=== PATIENT | male | born 1970 ===

== ENCOUNTER 2020-03-11 14:21 | Emergency (ER) | payer BC ==
[2020-03-11] MEDS ORDERED: Sodium Chloride 0.9% 10 ML Syringe FLUSH PRN (14:50)
[2020-03-11] MEDS ORDERED: Labetalol 100 MG/20 ML MDV IVPUSH ONE ×2 (14:51→15:37)
--- NOTE | 2020-03-11 15:45 | EDM.PDOC ---
ED HPI GENERAL MEDICAL PROBLEM - General Chief Complaint: Cardiovascular Problem Stated Complaint: HIGH BLOOD PRESSURE, SENT BY [facility] Time Seen by Provider: 03/11/20 14:37 Source of Information: Reports: Patient, Provider History Limitations: Reports: No Limitations - History of Present Illness INITIAL COMMENTS - FREE TEXT/NARRATIVE: The patient presents with hypertension. He was at the eye doctor to get new glasses. They did a screening blood pressure and they could not get one. The eye doctor could not do a complete exam but she did notice that he has some hypertensive retinal changes. We could not get a BP on our machine. A manual BP was 230/160. He has no signs or symptoms. He has no fever, chills, cough, congestion, runny nose, headache, chest pain, shortness of breath, abdominal pain, nausea, vomiting numbness or weakness. He has no medical problems. He does not smoke. Onset: Gradual Duration: Hour(s): Improves with: Reports: None Worsens with: Reports: None Associated Symptoms: Reports: No Other Symptoms - Related Data Allergies Allergy/AdvReac Type Severity Reaction Status Date / Time No Known Allergies Allergy Verified 03/11/20 14:46 Home Meds: Home Meds hydroCHLOROthiazide [Hydrochlorothiazide] 25 mg PO DAILY #30 tab 03/11/20 [Rx] Past Medical History - Past Health History Medical/Surgical History: Denies Medical/Surgical History Social & Family History - Tobacco Use Tobacco Use Status *Q: Current Every Day Tobacco User Years of Tobacco use: 30 Packs/Tins Daily: 1 - Caffeine Use Caffeine Use: Reports: Coffee, Tea - Recreational Drug Use Recreational Drug Use: No ED ROS GENERAL - Review of Systems Review Of Systems: See Below Constitutional: Reports: No Symptoms HEENT: Reports: No Symptoms Respiratory: Reports: No Symptoms Cardiovascular: Reports: No Symptoms Endocrine: Reports: No Symptoms GI/Abdominal: Reports: No Symptoms : Reports: No Symptoms Musculoskeletal: Reports: No Symptoms ED EXAM, GENERAL - Physical Exam Exam: See Below Exam Limited By: No Limitations General Appearance: Alert, No Apparent Distress Ears: Normal External Exam Nose: Normal Inspection Head: Atraumatic, Normocephalic Neck: Normal Inspection Respiratory/Chest: No Respiratory Distress, Lungs Clear, Normal Breath Sounds Cardiovascular: Regular Rate, Rhythm, No Edema, No Murmur GI/Abdominal: Soft, Non-Tender, No Organomegaly, No Mass Extremities: Normal Inspection Neurological: Alert, Oriented, No Motor/Sensory Deficits #1 Interpretation EKG Date: 03/11/20 Time: 15:10 Rhythm: NSR Rate (Beats/Min): 82 [place]: LAD-Left [place] Deviation P-Wave: Present QRS: Normal ST-T: Normal QT: Normal EKG Interpretation Comments: Left atrial enlargement, LVH, Q waves in inferior leads. Slight ST elevation in anterior leads due to LVH. Course - Vital Signs Last Recorded V/S: Last Vital Signs Temp 96.4 F L 03/11/20 14:45 Pulse 85 03/11/20 15:34 Resp 18 03/11/20 15:34 BP 219/152 H 03/11/20 15:34 Pulse Ox 96 03/11/20 15:34 - Orders/Labs/Meds Orders: Active Orders 24 hr Category Date Time Status Cardiac Monitoring [RC] . DIRECTED Care 03/11/20 14:50 Active EKG Documentation Completion [RC] STAT Care 03/11/20 14:51 Active Peripheral IV Care [RC] . DIRECTED Care 03/11/20 14:51 Active Sodium Chloride 0.9% [Saline Flush] Med 03/11/20 14:50 Active 10 ml FLUSH ASDIRECTED PRN Peripheral IV Insertion Adult [OM.PC] Stat Oth 03/11/20 14:50 Ordered Medication Orders Sodium Chloride (Saline Flush) 10 ml FLUSH ASDIRECTED PRN PRN Reason: Keep Vein Open Last Admin: 03/11/20 15:05 Dose: 10 ml Documented by: SARAH Labs: Laboratory Tests 03/11/20 03/11/20 Range/Units 14:45 14:45 WBC 10.25 H (4.23-9.07) K/mm3 RBC 5.60 (4.63-6.08) M/mm3 Hgb 15.2 (13.7-17.5) gm/dl Hct 47.7 (40.1-51.0) % MCV 85.2 (79.0-92.2) fl MCH 27.1 (25.7-32.2) pg MCHC 31.9 L (32.2-35.5) g/dl RDW Std Deviation 42.6 (35.1-43.9) fL Plt Count 311 (163-337) K/mm3 MPV 10.8 (9.4-12.3) fl Neut % (Auto) 64.7 (34.0-67.9) % Lymph % (Auto) 24.2 (21.8-53.1) % [place] % (Auto) 7.1 (5.3-12.2) % Eos % (Auto) 3.0 (0.8-7.0) Baso % (Auto) 0.8 (0.1-1.2) % Neut # (Auto) 6.63 H (1.78-5.38) K/mm3 Lymph # (Auto) 2.48 (1.32-3.57) K/mm3 [place] # (Auto) 0.73 (0.30-0.82) K/mm3 Eos # (Auto) 0.31 (0.04-0.54) K/mm3 Baso # (Auto) 0.08 (0.01-0.08) K/mm3 Manual Slide Review Normal smear Sodium 139 (136-145) mEq/L Potassium 3.8 (3.5-5.1) mEq/L Chloride 104 (98-107) mEq/L Carbon Dioxide 24 (21-32) mEq/L Anion Gap 14.8 (5-15) BUN 20 H (7-18) mg/dL Creatinine 1.2 (0.7-1.3) mg/dL Est Cr Clr Drug Dosing 73.65 mL/min Estimated GFR (MDRD) > 60 (>60) mL/min BUN/Creatinine Ratio 16.7 (14-18) Glucose 98 (74-106) mg/dL Calcium 9.6 (8.5-10.1) mg/dL Total Bilirubin 0.3 (0.2-1.0) mg/dL AST 22 (15-37) U/L ALT 47 (16-63) U/L Alkaline Phosphatase 109 (46-116) U/L Troponin I 0.055 (0.00-0.056) ng/mL Total Protein 8.0 (6.4-8.2) g/dl Albumin 3.8 (3.4-5.0) g/dl Globulin 4.2 gm/dL Albumin/Globulin Ratio 0.9 L (1-2) Meds: Medications Generic Name Dose Route Start Last Admin Trade Name Freq PRN Reason Stop Dose Admin Sodium Chloride 10 ml 03/11/20 14:50 03/11/20 15:05 Saline Flush FLUSH 10 ml ASDIRECTED PRN Administration Keep Vein Open Discontinued Medications Generic Name Dose Route Start Last Admin Trade Name Matt PRN Reason Stop Dose Admin Labetalol HCl 20 mg 03/11/20 14:51 03/11/20 15:04 Normodyne IVPUSH 03/11/20 14:52 20 mg ONETIME ONE Administration Protocol Labetalol HCl 40 mg 03/11/20 15:37 03/11/20 15:48 Normodyne IVPUSH 03/11/20 15:38 40 mg ONETIME ONE Administration Protocol - Re-Assessments/Exams Free Text/Narrative Re-Assessment/Exam: 03/11/20 15:47 I ordered an IV saline lock, labetalol 20mg IV, EKG, and labs. His EKG shows LVH. 03/11/20 16:14 His WBC was slightly elevated at 10.25. His CMP is negative. His troponin is negative. His BP is better it is 188/113. This is acceptable. I don not want to drop him to normal because he is at higher risk of stroke or heart attack. 03/11/20 16:15 I will get him on HCTZ and have him follow up with one of our providers in the clinic. Departure - Departure Time of Disposition: 16:20 Disposition: Home, Self-Care 01 Condition: Good Clinical Impression: Hypertension Qualifiers: Hypertension type: essential hypertension Qualified Code(s): I10 - Essential (primary) hypertension Prescriptions: hydroCHLOROthiazide [Hydrochlorothiazide] 25 mg PO DAILY #30 tab Referrals: PCP,None [Primary Care Provider] - Aravind Tijerina NP [Nurse Practitioner] - 1 Week Forms: ED Department Discharge Additional Instructions: Take the hydrochlorothiazide daily. Try to loose some weight. Watch your sodi um intake. Please return if you are worse. Sepsis Event Note (ED) - Evaluation Sepsis Screening Result: No Definite Risk - Focused Exam Vital Signs: Vital Signs Temp Pulse Resp BP Pulse Ox 03/11/20 15:34 85 18 219/152 H 96 03/11/20 15:25 80 213/148 H 96 03/11/20 15:15 81 224/150 H 100 03/11/20 14:54 93 13 260/160 H 100 03/11/20 14:45 96.4 F L 103 H 23 H 230/160 H 96 - My Orders Last 24 Hours: My Active Orders 03/11/20 14:50 Cardiac Monitoring [RC] . DIRECTED Sodium Chloride 0.9% [Saline Flush] 10 ml FLUSH ASDIRECTED PRN Peripheral IV Insertion Adult [OM.PC] Stat 03/11/20 14:51 EKG Documentation Completion [RC] STAT Peripheral IV Care [RC] . DIRECTED - Assessment/Plan Last 24 Hours: My Active Orders 03/11/20 14:50 Cardiac Monitoring [RC] . DIRECTED Sodium Chloride 0.9% [Saline Flush] 10 ml FLUSH ASDIRECTED PRN Peripheral IV Insertion Adult [OM.PC] Stat 03/11/20 14:51 EKG Documentation Completion [RC] STAT Peripheral IV Care [RC] . DIRECTED
== END 2020-03-11 16:40 | disposition home or self-care (01) ==
LOC: JD.ED 14:21
DX: I10 Essential (primary) hypertension (principal); D72.829 Elevated white blood cell count, unspecified; F17.210 Nicotine dependence, cigarettes, uncomplicated; Z79.899 Other long term (current) drug therapy
CPT/HCPCS: 36415; 80053; 84484; 85025; 93005; 96374; 96376; 99283; J3490; 93010; 99284

== ENCOUNTER 2020-07-31 13:24 | Emergency (ER) | payer BC ==
--- NOTE | 2020-07-31 13:29 | EDM.PDOC ---
ED HPI GENERAL MEDICAL PROBLEM - General Chief Complaint: General Stated Complaint: [facility] Time Seen by Provider: 07/31/20 13:29 - History of Present Illness INITIAL COMMENTS - FREE TEXT/NARRATIVE: 50-year-old male brought in by EMS with severe dizziness. This started about an hour and a half ago the patient drove to the [facility] in to hike around but after a couple hundred yards he was too dizzy. The patient decided to drive back to [place]. In route the dizziness got worse and the patient stopped at the EMS station in [place]. They transferred him from here the patient does not have any breathing difficulties no shortness of breath no chest pain and no palpitations. The patient was recently diagnosed with hypertension back in February and now is on 4 medications to control this. Taking losartan 50 mg a day amlodipine 10 mg a day hydrochlorothiazide 25 mg a day and prazosin 1 mg daily. The patient does not have a cough congestion. - Related Data Allergies Allergy/AdvReac Type Severity Reaction Status Date / Time No Known Allergies Allergy Verified 07/31/20 13:38 Home Meds: Home Meds Chlorthalidone 50 mg PO DAILY 07/31/20 [History] Losartan [Cozaar] 50 mg PO DAILY 07/31/20 [History] Meclizine [Antivert] 25 mg PO ASDIRECTED PRN #20 tab.chew 07/31/20 [Rx] Potassium Chloride [Klor-Con M20] 20 meq PO BID #6 tab.er 07/31/20 [Rx] Prazosin [Minpress] 1 mg PO DAILY 07/31/20 [History] amLODIPine Besylate [Amlodipine Besylate] 10 mg PO DAILY 07/31/20 [History] Past Medical History - Past Health History Medical/Surgical History: Denies Medical/Surgical History Social & Family History - Caffeine Use Caffeine Use: Reports: Coffee, Tea ED ROS GENERAL - Review of Systems Review Of Systems: See Below Constitutional: Reports: No Symptoms HEENT: Reports: Vertigo Respiratory: Reports: No Symptoms Cardiovascular: Denies: Chest Pain Endocrine: Reports: No Symptoms GI/Abdominal: Reports: No Symptoms : Reports: No Symptoms Musculoskeletal: Reports: No Symptoms Skin: Reports: No Symptoms Neurological: Reports: Dizziness. Denies: No Symptoms, Syncope Psychiatric: Reports: No Symptoms Hematologic/Lymphatic: Reports: No Symptoms Immunologic: Reports: No Symptoms ED EXAM, GENERAL - Physical Exam Exam: See Below Exam Limited By: No Limitations General Appearance: Alert, No Apparent Distress Eye Exam: Bilateral Eye: Foreign Body, Normal Inspection, PERRL Ears: Normal External Exam, Normal [place], Hearing Grossly Normal, Normal TMs, Other (It was noted that when the patient looks to the right this triggers the dizziness this is not noted when the patient looks to the left) Nose: Normal Inspection, Normal Mucosa, No Blood Throat/Mouth: Normal Inspection, Normal Lips, Normal Teeth, Normal Gums, Normal Oropharynx, Normal Voice, No Airway Compromise Head: Atraumatic, Normocephalic Neck: Normal Inspection, Supple, Non-Tender, Full Range of Motion. No: Lymphadenopathy (L), Lymphadenopathy (R) Respiratory/Chest: No Respiratory Distress, Lungs Clear, Normal Breath Sounds Cardiovascular: Regular Rate, Rhythm, No Edema, No Murmur GI/Abdominal: Normal Bowel Sounds, Soft, Non-Tender Back Exam: Normal Inspection. No: CVA Tenderness (L), CVA Tenderness (R), Vertebral Tenderness Extremities: Normal Inspection, No Pedal Edema Neurological: Alert, Oriented, CN II-XII Intact, Normal Cognition, No Motor/Sensory Deficits Psychiatric: Normal Affect, Normal Mood Skin Exam: Warm, Dry, Intact, Normal Color #1 Interpretation EKG Date: 07/31/20 Rhythm: NSR Rate (Beats/Min): 65 [place]: Normal P-Wave: Present QRS: Other (LVH) ST-T: Other (Borderline anterior ST elevation most likely due to LVH) QT: Normal Comparison: No Change (No significant change from prior EKG done 03/11 of last year) EKG Interpretation Comments: Abnormal nondiagnostic EKG Course - Vital Signs Last Recorded V/S: Last Vital Signs Temp 36.6 C 07/31/20 13:30 Pulse 78 07/31/20 13:30 Resp 18 07/31/20 13:30 BP 121/81 07/31/20 13:30 Pulse Ox 94 L 07/31/20 13:30 - Orders/Labs/Meds Orders: Active Orders 24 hr Category Date Time Status Ang Chest [CT] Stat Exams 07/31/20 14:41 Taken Chest 1V Frontal [CR] Stat Exams 07/31/20 13:45 Taken Magnesium Sulfate/Water [Magnesium Sulfate in Water 2 Med 07/31/20 14:45 Active GM/50 ML] 2 gm in 50 ml IV Q1H Sodium Chloride 0.9% [Normal Saline] 100 ml Med 07/31/20 15:00 Active IV ASDIRECTED Sodium Chloride 0.9% [Saline Flush] Med 07/31/20 15:00 Active 10 ml FLUSH ASDIRECTED Medication Orders Magnesium Sulfate (Magnesium Sulfate In Water 2 Gm/50 Ml) 2 gm in 50 mls @ 25 mls/hr IV Q1H AIMEE Last Admin: 07/31/20 15:35 Dose: 25 mls/hr Documented by: JOSE Sodium Chloride (Normal Saline) 100 mls @ 60 mls/hr IV ASDIRECTED AIMEE Last Admin: 07/31/20 15:17 Dose: 60 mls/hr Documented by: NOHEMI Sodium Chloride (Sodium Chloride 0.9% 10 Ml Syringe) 10 ml FLUSH ASDIRECTED AIMEE Last Admin: 07/31/20 15:17 Dose: 10 ml Documented by: [email or web address] Labs: Laboratory Tests 07/31/20 07/31/20 07/31/20 Range/Units 13:30 13:30 13:30 WBC 16.63 H (4.23-9.07) K/mm3 RBC 4.90 (4.63-6.08) M/mm3 Hgb 13.2 L D (13.7-17.5) gm/dl Hct 41.6 (40.1-51.0) % MCV 84.9 (79.0-92.2) fl MCH 26.9 (25.7-32.2) pg MCHC 31.7 L (32.2-35.5) g/dl RDW Std Deviation 42.6 (35.1-43.9) fL Plt Count 405 H D (163-337) K/mm3 MPV 10.1 (9.4-12.3) fl Neut % (Auto) 82.1 H (34.0-67.9) % Lymph % (Auto) 10.6 L (21.8-53.1) % [place] % (Auto) 5.0 L (5.3-12.2) % Eos % (Auto) 1.8 (0.8-7.0) Baso % (Auto) 0.2 (0.1-1.2) % Neut # (Auto) 13.65 H (1.78-5.38) K/mm3 Lymph # (Auto) 1.76 (1.32-3.57) K/mm3 [place] # (Auto) 0.83 H (0.30-0.82) K/mm3 Eos # (Auto) 0.30 (0.04-0.54) K/mm3 Baso # (Auto) 0.04 (0.01-0.08) K/mm3 Manual Slide Review Normal smear PT 11.0 (9.7-12.0) SECONDS INR 1.03 APTT 23.6 (21.7-31.4) SECONDS D-Dimer, Quantitative 1.10 H (0.19-0.50) mg/L Sodium 140 (136-145) mEq/L Potassium 3.3 L (3.5-5.1) mEq/L Chloride 102 (98-107) mEq/L Carbon Dioxide 24 (21-32) mEq/L Anion Gap 17.3 H (5-15) BUN 23 H (7-18) mg/dL Creatinine 1.4 H (0.7-1.3) mg/dL Est Cr Clr Drug Dosing TNP Estimated GFR (MDRD) 54 (>60) mL/min BUN/Creatinine Ratio 16.4 (14-18) Glucose 132 H (74-106) mg/dL Calcium 9.5 (8.5-10.1) mg/dL Magnesium 1.6 L (1.8-2.4) mg/dl Total Bilirubin 0.3 (0.2-1.0) mg/dL AST 19 (15-37) U/L ALT 49 (16-63) U/L Alkaline Phosphatase 112 (46-116) U/L Troponin I < 0.017 (0.00-0.056) ng/mL Total Protein 7.9 (6.4-8.2) g/dl Albumin 3.4 (3.4-5.0) g/dl Globulin 4.5 gm/dL Albumin/Globulin Ratio 0.8 L (1-2) SARS-CoV-2 RNA (LILI) (NEGATIVE) 07/31/20 Range/Units 15:45 WBC (4.23-9.07) K/mm3 RBC (4.63-6.08) M/mm3 Hgb (13.7-17.5) gm/dl Hct (40.1-51.0) % MCV (79.0-92.2) fl MCH (25.7-32.2) pg MCHC (32.2-35.5) g/dl RDW Std Deviation (35.1-43.9) fL Plt Count (163-337) K/mm3 MPV (9.4-12.3) fl Neut % (Auto) (34.0-67.9) % Lymph % (Auto) (21.8-53.1) % [place] % (Auto) (5.3-12.2) % Eos % (Auto) (0.8-7.0) Baso % (Auto) (0.1-1.2) % Neut # (Auto) (1.78-5.38) K/mm3 Lymph # (Auto) (1.32-3.57) K/mm3 [place] # (Auto) (0.30-0.82) K/mm3 Eos # (Auto) (0.04-0.54) K/mm3 Baso # (Auto) (0.01-0.08) K/mm3 Manual Slide Review PT (9.7-12.0) SECONDS INR APTT (21.7-31.4) SECONDS D-Dimer, Quantitative (0.19-0.50) mg/L Sodium (136-145) mEq/L Potassium (3.5-5.1) mEq/L Chloride (98-107) mEq/L Carbon Dioxide (21-32) mEq/L Anion Gap (5-15) BUN (7-18) mg/dL Creatinine (0.7-1.3) mg/dL Est Cr Clr Drug Dosing Estimated GFR (MDRD) (>60) mL/min BUN/Creatinine Ratio (14-18) Glucose (74-106) mg/dL Calcium (8.5-10.1) mg/dL Magnesium (1.8-2.4) mg/dl Total Bilirubin (0.2-1.0) mg/dL AST (15-37) U/L ALT (16-63) U/L Alkaline Phosphatase (46-116) U/L Troponin I (0.00-0.056) ng/mL Total Protein (6.4-8.2) g/dl Albumin (3.4-5.0) g/dl Globulin gm/dL Albumin/Globulin Ratio (1-2) SARS-CoV-2 RNA (LILI) Negative (NEGATIVE) Meds: Medications Generic Name Dose Route Start Last Admin Trade Name Matt PRN Reason Stop Dose Admin Magnesium Sulfate 2 gm in 50 mls @ 25 mls/hr 07/31/20 14:45 07/31/20 15:35 Magnesium Sulfate In Water 2 Gm/50 Ml IV 25 mls/hr Q1H AIMEE Administration Sodium Chloride 100 mls @ 60 mls/hr 07/31/20 15:00 07/31/20 15:17 Normal Saline IV 60 mls/hr ASDIRECTED AIMEE Administration Sodium Chloride 10 ml 07/31/20 15:00 07/31/20 15:17 Sodium Chloride 0.9% 10 Ml Syringe FLUSH 10 ml ASDIRECTED AIMEE Administration Discontinued Medications Generic Name Dose Route Start Last Admin Trade Name Matt PRN Reason Stop Dose Admin Lactated Ringer's 1,000 mls @ 999 mls/hr 07/31/20 14:34 07/31/20 15:35 Ringers, Lactated IV 07/31/20 15:34 999 mls/hr .BOLUS ONE Administration Iopamidol 100 ml 07/31/20 14:47 07/31/20 15:16 Iopamidol 755 Mg/Ml 100 Ml Bottle IVPUSH 07/31/20 14:48 100 ml ONETIME ONE Administration Meclizine HCl 12.5 mg 07/31/20 13:47 07/31/20 14:20 Meclizine 12.5 Mg Tab PO 07/31/20 13:48 12.5 mg ONETIME ONE Administration Potassium Chloride 40 meq 07/31/20 14:31 07/31/20 15:35 Potassium Chloride 20 Meq Tab.Er PO 07/31/20 14:32 40 meq ONETIME ONE Administration - Re-Assessments/Exams Free Text/Narrative Re-Assessment/Exam: 07/31/20 14:39 Troponin is normal he has significant hypokalemia and hypomagnesia. D-dimer is elevated. Chest x-ray is nondiagnostic. He appears dehydrated on his labs will give LR 40 mEq of oral potassium 2 g of IV magnesium. Early on I gave him 12.5 mg of meclizine. Did discuss the pros and cons of CTA to exclude a PE. We will pursue this. Patient's white count is 16,000 however a normal smear. 07/31/20 15:44 CTA is negative for PE however he has groundglass opacities noted in the lung castillo we will check for Covid. He also has a ascending aortic aneurysm without evidence of dissection. He will need follow-up for this. I discussed the findings with the patient. 07/31/20 20:22 Patient will be discharged at this time his discharge was delayed because of some critical issues going on in the emergency room. I discussed the cause of his dizziness and basically stated this is not entirely clear the patient now gives a history of having ringing in his ears at times and this started around the time he is started therapy for his hypertension. However, this may be more of an indication to get an audiology evaluation done. At this point I discussed treatment for this and will give him some meclizine however strongly urged him to only use it if absolutely necessary. The patient received 12.5 mg of meclizine here today and he is doing much better he still has some intermittent minimal symptoms but overall is doing quite a bit better he was found to be quite dehydrated on his labs and this was addressed with a couple liters of fluid his magnesium was low and his potassium was low. He received 40 mEq of oral potassium here and 2 g of IV magnesium here. He will start a couple days of Klor-Con and I recommended he start magnesium oxide 400 mg daily i ndefinitely. He is get a follow-up with his regular healthcare provider in a couple of days to address some of these issues I think he can safely stay on his routine blood pressure medications but the hydrochlorothiazide is probably the cause of his low potassium and magnesium but with the simple lab monitoring and intermittent supplementation of the potassium this can be dealt with and his blood pressure seems to be doing pretty well at this time. Departure - Departure Time of Disposition: 20:26 Disposition: Home, Self-Care 01 Clinical Impression: Vertigo, Hypokalemia, Hypomagnesemia - Discharge Information Referrals: Aravind Tijerina NP [Primary Care Provider] - Forms: ED Department Discharge Additional Instructions: Return to the emergency room with any questions problems or worsening symptoms. Follow-up in the clinic on Saturday or Saturday of this week and be sure and mention you have this a thoracic ascending aortic aneurysm. Discuss further evaluation for your dizziness. With the ringing in your ears and audiology evaluation could help. You will be getting a prescription for potassium take 1 twice daily for 3 days. Another prescription for meclizine was sent to your pharmacy. You should take 1/2 to 1 tablet only if absolutely necessary every 6 hours as needed to control your symptoms of dizziness. You should also picker packer some magnesium oxide, or Mag-Ox 400 mg take 1 daily this you can take indefinitely. It will help you maintain your potassium as well as help you maintain your magnesium. Sepsis Event Note (ED) - Focused Exam Vital Signs: Vital Signs Temp Pulse Resp BP Pulse Ox 07/31/20 13:30 36.6 C 78 18 121/81 94 L - My Orders Last 24 Hours: My Active Orders 07/31/20 13:45 Chest 1V Frontal [CR] Stat 07/31/20 14:41 Ang Chest [CT] Stat 07/31/20 14:45 Magnesium Sulfate/Water [Magnesium Sulfate in Water 2 GM/50 ML] 2 gm in 50 ml IV Q1H 07/31/20 15:00 Sodium Chloride 0.9% [Normal Saline] 100 ml IV ASDIRECTED Sodium Chloride 0.9% [Saline Flush] 10 ml FLUSH ASDIRECTED - Assessment/Plan Last 24 Hours: My Active Orders 07/31/20 13:45 Chest 1V Frontal [CR] Stat 07/31/20 14:41 Ang Chest [CT] Stat 07/31/20 14:45 Magnesium Sulfate/Water [Magnesium Sulfate in Water 2 GM/50 ML] 2 gm in 50 ml IV Q1H 07/31/20 15:00 Sodium Chloride 0.9% [Normal Saline] 100 ml IV ASDIRECTED Sodium Chloride 0.9% [Saline Flush] 10 ml FLUSH ASDIRECTED
[2020-07-31] MEDS ORDERED: Meclizine 12.5 MG Tab PO ONE (13:47)
[2020-07-31] MEDS ORDERED: Potassium Chloride 20 MEQ Tab.ER PO ONE (14:31)
[2020-07-31] MEDS ORDERED: Lactated Ringers 1,000 ML IV ONE (14:34)
[2020-07-31] MEDS ORDERED: Magnesium Sulfate/Water 2 GM/50 ML BAG IV SCH (14:45)
[2020-07-31] MEDS ORDERED: Iopamidol 755 Mg/ML 100 ML Bottle IVPUSH ONE (14:47)
[2020-07-31] MEDS ORDERED: Sodium Chloride 0.9% 10 ML Syringe FLUSH SCH (15:00)
[2020-07-31] MEDS ORDERED: Sodium Chloride 0.9% 100 ML IV SCH (15:00)
--- NOTE | 2020-08-01 10:32 | CR ---
Chest: Portable view of the chest was obtained. Comparison: No prior chest x-ray is available. Heart size is normal. Slight tortuosity of the thoracic aorta is seen. Lungs are clear with no acute parenchymal change. No acute osseous finding is appreciated. Impression: 1. Nothing acute is seen on portable chest x-ray. Diagnostic code #1
--- NOTE | 2020-08-01 10:39 | CT ---
CT chest Technique: Multiple axial sections through the chest were obtained. Intravenous contrast was utilized. Study has been performed as a pulmonary angiogram protocol. Findings: Pulmonary arteries are poorly opacified. No findings of discrete pulmonary embolism are seen within the main pulmonary emboli or within the proximal segmental pulmonary emboli. Smaller subsegmental pulmonary emboli could easily be missed. Ascending aorta is slightly aneurysmal at 4.4 cm in AP dimension. Descending aorta is 2.9 cm. Mediastinum and hilar region shows minimal lymph nodes which are believed to be within normal limits. No pericardial thickening is seen. Heart is felt to be slightly enlarged. Liver shows two low-density lesions within the left lobe measuring less than 1 cm. These are most likely due to minimal cysts. Several small cysts are seen within the left and right kidneys. Small stomach diverticulum is seen posteriorly. Very minimal groundglass appearance is seen within the lungs. Difficult to exclude chronic change versus mild change from slight bronchitis or very early pulmonary vascular congestion. Impression: 1. Poorly opacified pulmonary arteries. No larger pulmonary embolism is seen within the main or proximal segmental branches. Smaller subsegmental pulmonary emboli could easily be missed. 2. Ascending aortic aneurysm with AP dimension of 4.4 cm. 3. Slight groundglass appearance within both lungs as noted above. Diagnostic code #3 I agree with preliminary report from [facility], finalized on 07/31/20, 4:25 PM CDT
== END 2020-07-31 20:38 | disposition home or self-care (01) ==
LOC: JD.ED 13:24
DX: R42 Dizziness and giddiness (principal); E87.6 Hypokalemia; E83.42 Hypomagnesemia; Z20.822 Contact with and (suspected) exposure to COVID-19; Z79.899 Other long term (current) drug therapy
CPT/HCPCS: 36415; 71045; 71275; 80053; 83735; 84484; 85025; 85379; 85610; 85730; 87635; 96365; 99285; A9270; J3475; J7120; Q9967; 93010; 99284; U0002

== ENCOUNTER 2024-05-08 14:09 | Emergency (ER) | payer OTHER ==
[2024-05-08 15:54] LABS: BASOPHILS ABSOLUTE AUTO 0.1 K/mm3 (0.0-0.2); BASOPHILS PERCENT AUTO 0.8 % (0.0-1.0); EOSINOPHILS ABSOLUTE AUTO 0.4 K/mm3 (0.0-0.4); EOSINOPHILS PERCENT AUTO 4.9 % (0.0-6.0); HEMATOCRIT 44.2 % (42.0-52.0); HEMOGLOBIN 14.4 gm/dl (14.0-18.0); IMMATURE GRAN ABSOLUTE AUTO 0.03 K/mm3 (0.00-0.05); IMMATURE GRAN PERCENT AUTO 0.4 % (0.0-0.4); LYMPHOCYTES ABSOLUTE AUTO 1.8 K/mm3 (1.0-4.8); LYMPHOCYTES PERCENT AUTO 21.4 % (24.0-44.0); MEAN CORPUSCULAR HEMOGLOBIN 29.2 pg (28.0-32.0); MEAN CORPUSCULAR HGB CONC 32.6 g/dl (32.0-36.0); MEAN CORPUSCULAR VOLUME 89.7 fl (83.0-99.0); MEAN PLATELET VOLUME 10.6 fl (9.4-12.4); MONOCYTES ABSOLUTE AUTO 0.6 K/mm3 (0.0-0.8); MONOCYTES PERCENT AUTO 7.5 % (0.0-8.0); NEUTROPHILS ABSOLUTE AUTO 5.4 K/mm3 (1.8-7.7); PLATELET COUNT,PLT 217 K/mm3 (150-400); RED BLOOD CELL COUNT 4.93 M/mm3 (4.52-5.90); WHITE BLOOD CELL COUNT,WBC 8.32 K/mm3 (3.9-11.3)
[2024-05-08 16:41] LABS: ALBUMIN 3.5 g/dl (3.4-5.0); ANION GAP 16.7 (5-15); BILIRUBIN TOTAL 0.4 mg/dL (0.2-1.0); CALCIUM 9.5 mg/dL (8.5-10.1); CREATININE 1.5 mg/dL (0.7-1.3); EST CRCL DRUG DOSING (CG) 56.3 mL/min; POTASSIUM,K 3.7 mEq/L (3.5-5.1); PROTEIN TOTAL,TP 7.2 g/dl (6.4-8.2); TSH 2.292 uIU/mL (0.358-3.74)
== END 2024-05-08 17:07 | disposition home or self-care (01) ==
LOC: JD.ED 14:09
DX: R07.89 Other chest pain (principal); I10 Essential (primary) hypertension; F17.210 Nicotine dependence, cigarettes, uncomplicated; Z79.899 Other long term (current) drug therapy
CPT/HCPCS: 36415; 71046; 71046-26; 80053; 84443; 84484; 85025; 85379; 93005; 93010; 99284; 99285